=== PATIENT | male | born 1950 | race Caucasian/White ===

== ENCOUNTER 2020-12-17 06:41 | Emergency (ER) | payer OTHER, MEDICARE ==
[~2020-12-17] VITALS: Ht 180.3 cm; Wt 97.4 kg
[2020-12-17 07:47] LABS: CLARITY,URINE CLEAR (Clear); COLOR,URINE YELLOW (Yellow); GLUCOSE, URINE NEGATIVE (Neg); KETONES,URINE NEGATIVE (Neg); LEUKOCYTE ESTERASE ,URINE TRACE (Neg); NITRITES, URINE NEGATIVE (Neg); OCCULT BLOOD,URINE NEGATIVE (Neg); PROTEIN,URINE NEGATIVE (Neg); UROBILINOGEN,URINE 0.2 E.U/dL (0.2-1.0)
[2020-12-17 07:48] LABS: UA COLLECTION TYPE CLN CATCH MIDSTREAM
[2020-12-17 08:07] LABS: BACTERIA,URINE FEW /HPF (Neg); MUCUS STRANDS NONE SEEN /LPF (Neg); RBC,URINE NONE SEEN /HPF (0-2); SQUAMOUS EPITHELIAL CELL,UR FEW /LPF (FEW)
[2020-12-17] MEDS ORDERED: METH-797 PO (08:59)
[2020-12-17] MEDS ORDERED: cyclobenzaprine 10mg tablet PO ONE (09:00)
[2020-12-17 09:36] VITALS: BP 124/68
== END 2020-12-17 09:34 | disposition home or self-care (01) ==
LOC: ER 06:42
DX: S39.012A Strain of muscle, fascia and tendon of lower back, initial encounter (principal); K59.00 Constipation, unspecified; I10 Essential (primary) hypertension; E11.9 Type 2 diabetes mellitus without complications; Z85.9 Personal history of malignant neoplasm, unspecified; Z79.899 Other long term (current) drug therapy; X58.XXXA Exposure to other specified factors, initial encounter; Y93.89 Activity, other specified; Y92.89 Other specified places as the place of occurrence of the external cause; Y99.8 Other external cause status
CPT/HCPCS: 74176; 81001; 87077; 87088; 87186; 99284